=== PATIENT | female | born 1935 | race Caucasian/White ===

== ENCOUNTER 2016-03-12 05:40 | Inpatient (IN) | payer MEDICARE, BC ==
[~2016-03-12] VITALS: Ht 152.4 cm; Wt 76.4 kg
[~2016-03-12 05:40] MED LIST: AMLO5TAB4 PO; ATEN25TA PO; CARV6.25 PO; CYAN10009 PO; LEVO88TA9 PO; LORA10TA68 PO; MECL-118 PO; METF1000 PO; PANT40TA2 PO; ROSU5TAB PO; Rivaroxaban PO; [UNRECOGNIZED DRUG - CODE] PO
[2016-03-12 06:20] LABS: BASOPHILS # (AUTO) 0.1 /CMM (0.0-0.2); BASOPHILS % (AUTO) 0.9 % (0.0-2.0); DIFF TOTAL % 100 %; EOSINOPHILS % (AUTO) 0.6 % (0.0-6.0); HEMATOCRIT 38 % (33-45); HEMOGLOBIN 12.6 g/dL (11.5-14.8); LYMPHOCYTES # (AUTO) 1.5 /CMM (0.8-4.8); LYMPHOCYTES % (AUTO) 22.8 % (20.0-44.0); MEAN CORPUSCULAR HEMOGLOBIN 26 PG (26.0-33.0); MEAN CORPUSCULAR HGB CONC 33 g/dl (31.0-36.0); MEAN CORPUSCULAR VOLUME 80 fL (82-100); MONOCYTES # (AUTO) 1.4 /CMM (0.1-1.30); MONOCYTES % (AUTO) 20.6 % (2.0-12.0); NEUTROPHILS # (AUTO) 3.7 /CMM (1.8-8.9); NEUTROPHILS % (AUTO) 55.1 % (43.0-81.0); PLATELET COUNT (AUTO) 221 /CMM (150-450); WHITE BLOOD COUNT (AUTO) 6.6 K/uL (4.3-11.0)
[2016-03-12 06:21] LABS: CREATININE 1.1 mg/dL (0.6-1.3); POTASSIUM 3.5 mmol/L (3.5-5.1)
[2016-03-12 06:32] LABS: INR 1.04 (0.87-1.13); PROTHROMBIN TIME 11.2 SECS (9.5-12.7)
[2016-03-12 06:35] LABS: TROPONIN I 0.021 ng/mL (0.00-0.056)
[2016-03-12] MEDS ORDERED: ASPIRIN 81 MG TAB.CHEW PO ONE (07:00)
[2016-03-12] MEDS ORDERED: ASPIRIN EC 81 MG TABLET.DR PO ONE (07:08)
[2016-03-12 08:00] VITALS: BP 90/45
[2016-03-12] MEDS ORDERED: SOTA80TA26 PO (08:07)
[2016-03-12] MEDS ORDERED: AMLO5TAB4 PO (08:07)
[2016-03-12] MEDS ORDERED: METF500T4 PO (08:07)
[2016-03-12] MEDS ORDERED: ROSU20TA PO (08:07)
[2016-03-12] MEDS ORDERED: CIME800T PO (08:07)
[2016-03-12] MEDS ORDERED: RIVA10TA PO (08:07)
[2016-03-12] MEDS ORDERED: MULT-1168 PO (08:07)
[2016-03-12] MEDS ORDERED: LORA10TA68 PO (08:07)
[2016-03-12] MEDS ORDERED: CYAN500T4 PO (08:07)
[2016-03-12] MEDS ORDERED: CARV3.122 PO (08:07)
[2016-03-12] MEDS ORDERED: CIPR250T4 PO (08:11)
[2016-03-12] MEDS ORDERED: IBUP-1481 PO (08:11)
[2016-03-12] MEDS ORDERED: PIOG15TA3 PO (08:11)
[2016-03-12 08:26] LABS: BAND % (MANUAL) 1 % (0.0-5.0); EOSINOPHILS % (MANUAL) 1 % (0-4); LYMPHOCYTES % (MANUAL) 28 % (16-48)
[2016-03-12 08:27] LABS: HYPOCHROMASIA 1+
[2016-03-12 08:28] VITALS: BP 90/45
[2016-03-12 08:28] LABS: PLATELET ESTIMATE ADEQUATE
[2016-03-12] MEDS ORDERED: AMIODARONE 900 MG in IV D5W 500 ML IV PRN (09:30)
[2016-03-12] MEDS ORDERED: CIMETIDINE 800 MG PO SCH (09:30)
[2016-03-12] MEDS: CARVEDILOL 3.125 MG TABLET PO SCH ×2 (09:30→16:05)
[2016-03-12] MEDS ORDERED: AMIODARONE 150 MG in IV D5W 100 ML IV ONE (09:30)
[2016-03-12] MEDS: PANTOPRAZOLE 40 MG TABLET.DR PO SCH (09:42)
[2016-03-12] MEDS: LEVOTHYROXINE SODIUM 88 MCG TABLET PO SCH (09:42)
[2016-03-12 09:43] LABS: PHOSPHORUS 3.3 mg/dL (2.5-4.9)
[2016-03-12] MEDS: LORATADINE 10 MG TABLET PO SCH (09:43)
[2016-03-12] MEDS: CYANOCOBALAMIN 500 MCG TABLET PO SCH (09:43)
[2016-03-12] MEDS: PIOGLITAZONE HCL 15 MG TABLET PO SCH (09:46)
[2016-03-12] MEDS: METFORMIN 500 MG TABLET PO SCH ×2 (09:46→16:02)
[2016-03-12 09:56] LABS: THYROID STIMULATING HORMONE 1.802 uIU/mL (0.358-3.74)
[2016-03-12] MEDS ORDERED: ACETAMINOPHEN 325 MG TABLET PO PRN (10:00)
[2016-03-12] MEDS ORDERED: Z GUARD REMEDY 2 OZ OINT TP PRN (10:00)
[2016-03-12] MEDS ORDERED: MAG HYDROX/AL HYDROX/SIMETH 30 ML UDC PO PRN (10:00)
[2016-03-12] MEDS ORDERED: MAGNESIUM HYDROXIDE 30 ML UDC PO PRN (10:00)
[2016-03-12 12:00] VITALS: BP 106/45
[2016-03-12] MEDS ORDERED: AMIODARONE 900 MG in IV D5W 482 ML IV PRN (12:30)
[2016-03-12 16:00] VITALS: BP 115/54
[2016-03-12] MEDS: RIVAROXABAN 10 MG TABLET PO SCH (16:02)
[2016-03-12] MEDS ORDERED: IV SET PRIMARY PUMP SET 1 EA INFUS.SET MC ONE (18:00)
[2016-03-12] MEDS: CEFTRIAXONE 1 G in IV D5W 50 ML IV SCH (18:27)
[2016-03-12] MEDS: HYDROCODONE/APAP 5/325MG 1 EACH TABLET PO PRN (18:36)
[2016-03-12 20:00] VITALS: BP 109/61
[2016-03-12] MEDS: FAMOTIDINE (20 MG) 20 MG TABLET PO SCH (21:22)
[2016-03-12] MEDS: ATORVASTATIN 40 MG TABLET PO SCH (21:22)
[2016-03-13] VITALS: BP 115/56
[2016-03-13 04:00] VITALS: BP 123/69
[2016-03-13] MEDS ORDERED: PANTOPRAZOLE 40 MG TABLET.DR PO SCH (07:30)
[2016-03-13 07:37] LABS: BASOPHILS % (AUTO) 0.1 % (0.0-2.0); DIFF TOTAL % 100 %; EOSINOPHILS # (AUTO) 0.1 /CMM (0.0-0.7); EOSINOPHILS % (AUTO) 1.2 % (0.0-6.0); HEMATOCRIT 36 % (33-45); HEMOGLOBIN 12.1 g/dL (11.5-14.8); LYMPHOCYTES # (AUTO) 1.3 /CMM (0.8-4.8); LYMPHOCYTES % (AUTO) 22.6 % (20.0-44.0); MEAN CORPUSCULAR HEMOGLOBIN 27 PG (26.0-33.0); MEAN CORPUSCULAR HGB CONC 33 g/dl (31.0-36.0); MEAN CORPUSCULAR VOLUME 80 fL (82-100); MONOCYTES % (AUTO) 16.4 % (2.0-12.0); NEUTROPHILS # (AUTO) 3.5 /CMM (1.8-8.9); NEUTROPHILS % (AUTO) 59.7 % (43.0-81.0); PLATELET COUNT (AUTO) 197 /CMM (150-450); RED BLOOD CELL COUNT(AUTO) 4.52 MIL/uL (4.0-5.2); WHITE BLOOD COUNT (AUTO) 5.9 K/uL (4.3-11.0)
[2016-03-13 08:00] VITALS: BP 120/54
[2016-03-13 08:14] LABS: ALBUMIN 3.4 g/dL (3.4-5.0); BILIRUBIN,TOTAL 0.5 mg/dL (0.2-1.0); CALCIUM, SERUM 8.6 mg/dL (8.5-10.1); CREATININE 0.8 mg/dL (0.6-1.3); PHOSPHORUS 3.4 mg/dL (2.5-4.9); POTASSIUM 3.8 mmol/L (3.5-5.1); TOTAL PROTEIN, SERUM 6.4 g/dL (6.4-8.2)
[2016-03-13 08:17] LABS: TROPONIN I 0.103 ng/mL (0.00-0.056)
[2016-03-13] MEDS: PIOGLITAZONE HCL 15 MG TABLET PO SCH (09:08)
[2016-03-13] MEDS: LORATADINE 10 MG TABLET PO SCH (09:08)
[2016-03-13] MEDS: LEVOTHYROXINE SODIUM 88 MCG TABLET PO SCH (09:08)
[2016-03-13] MEDS: CYANOCOBALAMIN 500 MCG TABLET PO SCH (09:08)
[2016-03-13] MEDS: METFORMIN 500 MG TABLET PO SCH ×2 (09:08→16:51)
[2016-03-13] MEDS: PANTOPRAZOLE 40 MG TABLET.DR PO SCH (09:08)
[2016-03-13] MEDS: CARVEDILOL 3.125 MG TABLET PO SCH (09:09)
[2016-03-13] MEDS: HYDROCODONE/APAP 5/325MG 1 EACH TABLET PO PRN (09:15)
[2016-03-13] MEDS ORDERED: Magnesium 1GM/D5W 100ML PREMIX 100 ML IV SCH (11:01)
[2016-03-13 12:00] VITALS: BP 110/62
[2016-03-13] MEDS ORDERED: SECONDARY IV SET 1 EA INFUS.SET MC ONE (12:19)
[2016-03-13] MEDS ORDERED: IV SET PRIMARY PUMP SET 1 EA INFUS.SET MC ONE (12:19)
[2016-03-13] MEDS ORDERED: IV NS 0.9% 50 ML IV ONE (12:20)
[2016-03-13] MEDS: Magnesium 1GM/D5W 100ML PREMIX 100 ML IV SCH ×2 (12:28→16:57)
[2016-03-13] MEDS: ONDANSETRON HCL/PF 4 MG/2 ML VIAL IVP PRN (12:30)
[2016-03-13 16:00] VITALS: BP 95/67
[2016-03-13] MEDS: CARVEDILOL 12.5 MG TABLET PO SCH (16:53)
[2016-03-13] MEDS: AMIODARONE HCL 200 MG TABLET PO SCH (16:56)
[2016-03-13] MEDS: RIVAROXABAN 10 MG TABLET PO SCH (16:57)
[2016-03-13] MEDS: CEFTRIAXONE 1 G in IV D5W 50 ML IV SCH (18:14)
[2016-03-13 20:00] VITALS: BP 119/59
[2016-03-13] MEDS: FAMOTIDINE (20 MG) 20 MG TABLET PO SCH (22:09)
[2016-03-13] MEDS: ATORVASTATIN 40 MG TABLET PO SCH (22:10)
[2016-03-13] MEDS: ZOLPIDEM TARTRATE 5 MG TABLET PO PRN (22:25)
[2016-03-14] VITALS: BP 105/64
[2016-03-14 04:00] VITALS: BP 108/77
[2016-03-14 06:11] LABS: BASOPHILS # (AUTO) 0.1 /CMM (0.0-0.2); BASOPHILS % (AUTO) 0.9 % (0.0-2.0); DIFF TOTAL % 100 %; EOSINOPHILS # (AUTO) 0.1 /CMM (0.0-0.7); EOSINOPHILS % (AUTO) 0.8 % (0.0-6.0); HEMATOCRIT 35 % (33-45); HEMOGLOBIN 11.9 g/dL (11.5-14.8); LYMPHOCYTES # (AUTO) 1.1 /CMM (0.8-4.8); LYMPHOCYTES % (AUTO) 13.4 % (20.0-44.0); MEAN CORPUSCULAR HEMOGLOBIN 27 PG (26.0-33.0); MEAN CORPUSCULAR HGB CONC 34 g/dl (31.0-36.0); MEAN CORPUSCULAR VOLUME 80 fL (82-100); MONOCYTES # (AUTO) 1.3 /CMM (0.1-1.30); MONOCYTES % (AUTO) 16.5 % (2.0-12.0); NEUTROPHILS # (AUTO) 5.5 /CMM (1.8-8.9); NEUTROPHILS % (AUTO) 68.4 % (43.0-81.0); PLATELET COUNT (AUTO) 198 /CMM (150-450); RED BLOOD CELL COUNT(AUTO) 4.42 MIL/uL (4.0-5.2); WHITE BLOOD COUNT (AUTO) 8.1 K/uL (4.3-11.0)
[2016-03-14 07:11] LABS: ALBUMIN 3.4 g/dL (3.4-5.0); BILIRUBIN,TOTAL 0.5 mg/dL (0.2-1.0); CALCIUM, SERUM 8.6 mg/dL (8.5-10.1); CREATININE 0.9 mg/dL (0.6-1.3); PHOSPHORUS 3.4 mg/dL (2.5-4.9); TOTAL PROTEIN, SERUM 6.4 g/dL (6.4-8.2)
[2016-03-14 07:31] LABS: TROPONIN I 0.791 ng/mL (0.00-0.056)
[2016-03-14 08:00] VITALS: BP 94/58
[2016-03-14] MEDS: CARVEDILOL 12.5 MG TABLET PO SCH ×2 (09:00→16:20)
[2016-03-14] MEDS ORDERED: ERGOCALCIFEROL (VITAMIN D 2) 50,000 UNIT CAPSULE PO SCH (09:30)
[2016-03-14] MEDS ORDERED: SECONDARY IV SET 1 EA INFUS.SET MC ONE (09:33)
[2016-03-14] MEDS: LORATADINE 10 MG TABLET PO SCH (09:38)
[2016-03-14] MEDS: AMIODARONE HCL 200 MG TABLET PO SCH ×2 (09:38→16:23)
[2016-03-14] MEDS: LEVOTHYROXINE SODIUM 88 MCG TABLET PO SCH (09:38)
[2016-03-14] MEDS: METFORMIN 500 MG TABLET PO SCH ×2 (09:38→17:15)
[2016-03-14] MEDS: PANTOPRAZOLE 40 MG TABLET.DR PO SCH (09:39)
[2016-03-14] MEDS: CYANOCOBALAMIN 500 MCG TABLET PO SCH (09:39)
[2016-03-14] MEDS: Magnesium 1GM/D5W 100ML PREMIX 100 ML IV SCH ×2 (09:40→10:51)
[2016-03-14] MEDS: PIOGLITAZONE HCL 15 MG TABLET PO SCH (09:53)
[2016-03-14 12:00] VITALS: BP_SYST 11; BP_SYST 111; BP_DIAS 85
[2016-03-14] MEDS: DIGOXIN INJ 0.5 MG/2 ML AMPUL IV SCH ×2 (12:47→17:55)
[2016-03-14 16:00] VITALS: BP_SYST 140; BP_SYST 97; BP_DIAS 52; BP_DIAS 62
[2016-03-14] MEDS: RIVAROXABAN 10 MG TABLET PO SCH (17:15)
[2016-03-14] MEDS: CEFTRIAXONE 1 G in IV D5W 50 ML IV SCH (17:32)
[2016-03-14 17:33] LABS: KETONES,URINE NEGATIVE (NEGATIVE); LEUKOCYTE ESTERASE ,URINE TRACE (NEGATIVE)
[2016-03-14 18:11] LABS: ADD UA MICROSCOPIC YES
[2016-03-14 18:49] LABS: RBC,URINE 0-2 /HPF (0-2)
[2016-03-14 18:51] LABS: ADD URINE CULTURE NO; HYALINE CASTS, URINE Few /LPF (None Seen)
[2016-03-14 20:00] VITALS: BP 115/66
[2016-03-14] MEDS: FAMOTIDINE (20 MG) 20 MG TABLET PO SCH (21:28)
[2016-03-14] MEDS: ATORVASTATIN 40 MG TABLET PO SCH (21:28)
[2016-03-14] MEDS: MUPIROCIN OINT 2% 22 GM TUBE SCH (21:29)
[2016-03-14] MEDS: ZOLPIDEM TARTRATE 5 MG TABLET PO PRN (21:29)
[2016-03-15] VITALS: BP 104/68
[2016-03-15] MEDS: DIGOXIN INJ 0.5 MG/2 ML AMPUL IV SCH (00:16)
[2016-03-15] MEDS: HYDROCODONE/APAP 5/325MG 1 EACH TABLET PO PRN (02:50)
[2016-03-15 04:00] VITALS: BP 116/62
[2016-03-15 06:45] LABS: BASOPHILS % (AUTO) 0.1 % (0.0-2.0); DIFF TOTAL % 100 %; EOSINOPHILS # (AUTO) 0.1 /CMM (0.0-0.7); EOSINOPHILS % (AUTO) 0.6 % (0.0-6.0); HEMATOCRIT 33 % (33-45); HEMOGLOBIN 11.1 g/dL (11.5-14.8); LYMPHOCYTES # (AUTO) 0.9 /CMM (0.8-4.8); LYMPHOCYTES % (AUTO) 9.3 % (20.0-44.0); MEAN CORPUSCULAR HEMOGLOBIN 27 PG (26.0-33.0); MEAN CORPUSCULAR HGB CONC 34 g/dl (31.0-36.0); MEAN CORPUSCULAR VOLUME 80 fL (82-100); MONOCYTES % (AUTO) 20.1 % (2.0-12.0); NEUTROPHILS % (AUTO) 69.9 % (43.0-81.0); PLATELET COUNT (AUTO) 166 /CMM (150-450); RED BLOOD CELL COUNT(AUTO) 4.11 MIL/uL (4.0-5.2)
[2016-03-15 07:19] LABS: CALCIUM, SERUM 8.6 mg/dL (8.5-10.1); CREATININE 0.8 mg/dL (0.6-1.3); PHOSPHORUS 3.3 mg/dL (2.5-4.9)
[2016-03-15 08:00] VITALS: BP_SYST 107; BP_DIAS 61; BP_DIAS 70
[2016-03-15 08:12] LABS: BAND % (MANUAL) 5 % (0.0-5.0); EOSINOPHILS % (MANUAL) 1 % (0-4); LYMPHOCYTES % (MANUAL) 12 % (16-48); PLATELET ESTIMATE ADEQUATE
[2016-03-15 08:13] LABS: ANISOCYTOSIS 1+
[2016-03-15] MEDS: PANTOPRAZOLE 40 MG TABLET.DR PO SCH (08:27)
[2016-03-15] MEDS: PIOGLITAZONE HCL 15 MG TABLET PO SCH (08:27)
[2016-03-15] MEDS: METFORMIN 500 MG TABLET PO SCH ×2 (08:27→17:46)
[2016-03-15] MEDS: LEVOTHYROXINE SODIUM 88 MCG TABLET PO SCH (08:27)
[2016-03-15] MEDS: CARVEDILOL 12.5 MG TABLET PO SCH ×2 (08:28→17:46)
[2016-03-15] MEDS: CYANOCOBALAMIN 500 MCG TABLET PO SCH (08:28)
[2016-03-15] MEDS: AMIODARONE HCL 200 MG TABLET PO SCH ×3 (08:29→17:47)
[2016-03-15] MEDS: MUPIROCIN OINT 2% 22 GM TUBE SCH ×2 (08:30→21:36)
[2016-03-15] MEDS: LORATADINE 10 MG TABLET PO SCH (08:31)
[2016-03-15 12:00] VITALS: BP 115/86
[2016-03-15] MEDS ORDERED: SECONDARY IV SET 1 EA INFUS.SET MC ONE (12:13)
[2016-03-15] MEDS: Magnesium 1GM/D5W 100ML PREMIX 100 ML IV SCH ×2 (12:17→13:36)
[2016-03-15] MEDS: ONDANSETRON HCL/PF 4 MG/2 ML VIAL IVP PRN (12:22)
[2016-03-15] MEDS: DIGOXIN 0.25 MG TABLET PO SCH (13:37)
[2016-03-15 16:00] VITALS: BP 131/75
[2016-03-15] MEDS: RIVAROXABAN 10 MG TABLET PO SCH (17:50)
[2016-03-15] MEDS: CEFTRIAXONE 1 G in IV D5W 50 ML IV SCH (18:03)
[2016-03-15 20:00] VITALS: BP 104/50
[2016-03-15] MEDS: ATORVASTATIN 40 MG TABLET PO SCH (21:36)
[2016-03-15] MEDS: FAMOTIDINE (20 MG) 20 MG TABLET PO SCH (21:36)
[2016-03-15] MEDS: ZOLPIDEM TARTRATE 5 MG TABLET PO PRN (21:44)
[2016-03-16] VITALS: BP 146/81
[2016-03-16 04:00] VITALS: BP 102/78
[2016-03-16 07:52] LABS: CALCIUM, SERUM 8.6 mg/dL (8.5-10.1); CREATININE 0.8 mg/dL (0.6-1.3); POTASSIUM 4.4 mmol/L (3.5-5.1)
[2016-03-16 08:00] VITALS: BP 104/59
[2016-03-16] MEDS: LEVOTHYROXINE SODIUM 88 MCG TABLET PO SCH (09:32)
[2016-03-16] MEDS: CYANOCOBALAMIN 500 MCG TABLET PO SCH (09:32)
[2016-03-16 09:33] LABS: URINE SODIUM, RANDOM < 5 mmol/l (40-220)
[2016-03-16] MEDS: METFORMIN 500 MG TABLET PO SCH ×2 (09:33→18:35)
[2016-03-16] MEDS: LORATADINE 10 MG TABLET PO SCH (09:33)
[2016-03-16] MEDS: PANTOPRAZOLE 40 MG TABLET.DR PO SCH (09:33)
[2016-03-16] MEDS: PIOGLITAZONE HCL 15 MG TABLET PO SCH (09:33)
[2016-03-16] MEDS: AMIODARONE HCL 200 MG TABLET PO SCH ×3 (09:34→18:36)
[2016-03-16] MEDS: CARVEDILOL 12.5 MG TABLET PO SCH ×2 (09:35→18:32)
[2016-03-16] MEDS: MUPIROCIN OINT 2% 22 GM TUBE SCH ×2 (09:42→21:12)
[2016-03-16 11:19] LABS: URIC ACID 4.9 mg/dL (2.6-7.2)
[2016-03-16 12:00] VITALS: BP 116/53
[2016-03-16] MEDS: HYDROCODONE/APAP 5/325MG 1 EACH TABLET PO PRN (14:34)
[2016-03-16] MEDS: DIGOXIN 0.25 MG TABLET PO SCH (14:40)
[2016-03-16] MEDS ORDERED: Z GUARD REMEDY 2 OZ OINT TP PRN (15:00)
[2016-03-16 16:00] VITALS: BP_SYST 100; BP_SYST 99; BP_DIAS 58; BP_DIAS 69
[2016-03-16] MEDS: Z GUARD REMEDY 2 OZ OINT TP SCH (17:00)
[2016-03-16] MEDS: CEFTRIAXONE 1 G in IV D5W 50 ML IV SCH (18:31)
[2016-03-16] MEDS: RIVAROXABAN 10 MG TABLET PO SCH (18:34)
[2016-03-16] MEDS: ONDANSETRON HCL/PF 4 MG/2 ML VIAL IVP PRN (18:40)
[2016-03-16 20:00] VITALS: BP 114/62
[2016-03-16] MEDS: ZOLPIDEM TARTRATE 5 MG TABLET PO PRN (21:11)
[2016-03-16] MEDS: FAMOTIDINE (20 MG) 20 MG TABLET PO SCH (21:11)
[2016-03-16] MEDS: ATORVASTATIN 40 MG TABLET PO SCH (21:11)
[2016-03-17 07:20] LABS: BILIRUBIN,TOTAL 0.5 mg/dL (0.2-1.0); CALCIUM, SERUM 8.5 mg/dL (8.5-10.1); CREATININE 0.8 mg/dL (0.6-1.3); POTASSIUM 4.1 mmol/L (3.5-5.1); TOTAL PROTEIN, SERUM 6.4 g/dL (6.4-8.2)
[2016-03-17 07:44] LABS: BASOPHILS % (AUTO) 0.1 % (0.0-2.0); DIFF TOTAL % 100 %; EOSINOPHILS # (AUTO) 0.1 /CMM (0.0-0.7); EOSINOPHILS % (AUTO) 0.7 % (0.0-6.0); HEMATOCRIT 30 % (33-45); HEMOGLOBIN 10.3 g/dL (11.5-14.8); LYMPHOCYTES # (AUTO) 0.9 /CMM (0.8-4.8); LYMPHOCYTES % (AUTO) 12.2 % (20.0-44.0); MEAN CORPUSCULAR HEMOGLOBIN 27 PG (26.0-33.0); MEAN CORPUSCULAR HGB CONC 34 g/dl (31.0-36.0); MEAN CORPUSCULAR VOLUME 80 fL (82-100); MONOCYTES # (AUTO) 1.3 /CMM (0.1-1.30); MONOCYTES % (AUTO) 19.3 % (2.0-12.0); NEUTROPHILS # (AUTO) 4.7 /CMM (1.8-8.9); NEUTROPHILS % (AUTO) 67.7 % (43.0-81.0); PLATELET COUNT (AUTO) 153 /CMM (150-450)
[2016-03-17 08:00] VITALS: BP 101/64
[2016-03-17] MEDS: PIOGLITAZONE HCL 15 MG TABLET PO SCH (08:00)
[2016-03-17] MEDS: LEVOTHYROXINE SODIUM 88 MCG TABLET PO SCH (08:00)
[2016-03-17] MEDS: LORATADINE 10 MG TABLET PO SCH (08:01)
[2016-03-17] MEDS: MUPIROCIN OINT 2% 22 GM TUBE SCH (08:02)
[2016-03-17] MEDS: AMIODARONE HCL 200 MG TABLET PO SCH ×2 (08:09→12:37)
[2016-03-17] MEDS: METFORMIN 500 MG TABLET PO SCH (08:09)
[2016-03-17] MEDS: CYANOCOBALAMIN 500 MCG TABLET PO SCH (08:10)
[2016-03-17] MEDS: PANTOPRAZOLE 40 MG TABLET.DR PO SCH (08:10)
[2016-03-17] MEDS: CARVEDILOL 12.5 MG TABLET PO SCH (08:10)
[2016-03-17] MEDS: Z GUARD REMEDY 2 OZ OINT TP SCH (09:00)
[2016-03-17] MEDS: ONDANSETRON HCL/PF 4 MG/2 ML VIAL IVP PRN (10:05)
[2016-03-17 10:55] LABS: BAND % (MANUAL) 4 % (0.0-5.0); LYMPHOCYTES % (MANUAL) 16 % (16-48)
[2016-03-17 10:56] LABS: HYPOCHROMASIA 1+; PLATELET ESTIMATE ADEQUATE
[2016-03-17] MEDS ORDERED: IV SET PRIMARY PUMP SET 1 EA INFUS.SET MC ONE (11:18)
[2016-03-17] MEDS: Magnesium 1GM/D5W 100ML PREMIX 100 ML IV SCH ×2 (11:27→12:31)
[2016-03-17 12:37] VITALS: BP 93/51
[2016-03-17] MEDS: DIGOXIN 0.25 MG TABLET PO SCH (12:38)
== END 2016-03-17 13:56 | DRG 281 ==
LOC: ER 05:42 → TELE 07:27 → TELE-TD 11:19 → TELE1 03-13 11:56 → MEDSG1 03-16 13:43
DX: I48.0 Paroxysmal atrial fibrillation (principal); I21.4 Non-ST elevation (NSTEMI) myocardial infarction; E87.1 Hypo-osmolality and hyponatremia; Q24.5 Malformation of coronary vessels; Q89.09 Congenital malformations of spleen; I25.10 Atherosclerotic heart disease of native coronary artery without angina pectoris; E03.9 Hypothyroidism, unspecified; E11.9 Type 2 diabetes mellitus without complications; I25.2 Old myocardial infarction; I42.1 Obstructive hypertrophic cardiomyopathy; G47.33 Obstructive sleep apnea (adult) (pediatric); I50.9 Heart failure, unspecified; E55.9 Vitamin D deficiency, unspecified; I47.2 Ventricular tachycardia; K40.20 Bilateral inguinal hernia, without obstruction or gangrene, not specified as recurrent; K42.9 Umbilical hernia without obstruction or gangrene; K57.30 Diverticulosis of large intestine without perforation or abscess without bleeding; M47.814 Spondylosis without myelopathy or radiculopathy, thoracic region; Z85.820 Personal history of malignant melanoma of skin; I11.0 Hypertensive heart disease with heart failure
CPT/HCPCS: 36415; 71010-TC; 80048-TC; 80053-TC; 80061-TC; 81000-TC; 82306; 82728-TC; 82962-TC; 83540-TC; 83735-TC; 83935-TC; 84100-TC; 84300-TC; 84439-TC; 84443-TC; 84484-TC; 84550-TC; 85025-TC; 85730-TC; 87081-TC; 87086-TC; 93307-TC; 94799-TC; 97001-TC; A4216; A4606; J0282; J0696; J1160; J2405; J3475; J7060; Z7610